=== PATIENT | female | born 1960 | race Caucasian/White ===

== ENCOUNTER 2017-10-01 12:15 | Outpatient (CLI) | payer MEDICARE, BC ==
--- NOTE | 2017-10-01 14:31 | ULT ---
ULTRASOUND RETROPERITONEUM COMPLETE: (RENAL) 10/01/2017 HISTORY: A 57-year-old female with cystitis. COMPARISON: 10/03/2016 FINDINGS: Again noted is the approximately 1 cm round, hyperechoic, parenchymal mass in the upper pole of the r ight kidney that was conclusively demonstrated on the noncontrast CT of 11/12/2014 to be of fat densi ty, representing a benign angiomyolipoma. It has not changed since the ultrasound of 10/03/2016. Th e right kidney measures 6.5 x 5 x 5.5 cm. The left kidney measures 11 x 5.5 x 5.5 cm. There is no hydronephrosis bilaterally. The pre-void urinary bladder has a normal appearance, with an estimated volume of approximately 210 m L. The post void bladder volume is approximately 40 mL. IMPRESSION: 1. No hydronephrosis. 2. Small amount of post void residua. 3. Small, benign angiomyolipoma in the upper pole of the right kidney. ROXY Bermudez POS: INDIGO
== END 2017-10-01 12:16 | disposition home or self-care (01) ==
LOC: ULT 12:15
PROVIDERS: ATTEND Urology
DX: D17.71 Benign lipomatous neoplasm of kidney (principal)
CPT/HCPCS: 76770

== ENCOUNTER 2017-11-04 15:04 | Outpatient (CLI) | payer MEDICARE, BC ==
--- NOTE | 2017-11-04 19:12 | RAD ---
KUB: INDICATIONS: Nephrolithiasis. COMPARISON: 01/04/2015. FINDINGS: There is prominent amount of retained stool overlying the abdomen and pelvis. There is an anastomoti c suture ring seen within the pelvis, likely related to a colorectal anastomosis. Bowel gas pattern is unobstructed. There are tiny, nonobstructing calculi seen in the expected regio n of the left kidney, which are stable. There is a prominent nonobstructing calculus involving the i nferior pole of the right kidney, likely stable, measuring approximately 9 mm. No acute osseous abno rmality is evident. IMPRESSION: 1. Stable nephrolithiasis when compared to prior study dated 01/04/2015. 2. The previously seen right ureteral stent has been removed. 3. Prominent amount of retained stool within the colon and rectum slightly limits image detail. POS: INDIGO
== END 2017-11-04 15:05 | disposition home or self-care (01) ==
LOC: RAD 15:04
PROVIDERS: ATTEND Urology
DX: N20.0 Calculus of kidney (principal); K59.00 Constipation, unspecified
CPT/HCPCS: 74018

== ENCOUNTER 2018-03-10 10:05 | Outpatient (CLI) | payer MEDICARE, BC ==
[~2018-03-10 10:05] MED LIST: Gadobenate Dimeglumine 529 MG/1 ML (20ML VIAL) ONE
--- NOTE | 2018-03-10 13:18 | MRI ---
BRAIN MRI WITH AND WITHOUT CONTRAST: Date: 03/10/18 COMPARISON: None. HISTORY: Polyneuropathy, gait abnormality for weeks. TECHNIQUE: Multiplanar, multisequence MR imaging of the brain is provided with and without contrast. FINDINGS: The imaged paranasal sinuses/mastoid air cells demonstrate mucosal thickening of the anterior ethmoid air cells bilaterally. There is mild mucosal thickening of maxillary sinus on right and there is mod erate polypoid mucosal thickening of the maxillary sinus on the left. Arterial flow-voids at the axia l level of the skull base appear unremarkable on the T2-weighted imaging. The diffusion-weighted imaging demonstrates no evidence for acute infarction. Axial gradient echo imaging demonstrates no evidence for intracranial hemorrhage. No midline shift or mass effect is noted. Regional bone marrow signal intensity appears grossly unremarkable. The postcontrast imaging demonstrates no abnormal enhancement within the brain parenchyma. IMPRESSION: No acute findings. POS: INDIGO
== END 2018-03-10 10:06 | disposition home or self-care (01) ==
LOC: SCSMRI 10:05
PROVIDERS: ATTEND Psychiatry & Neurology Neurology
DX: G62.9 Polyneuropathy, unspecified (principal); R26.9 Unspecified abnormalities of gait and mobility
CPT/HCPCS: 70553; A9579

== ENCOUNTER 2018-03-25 11:10 | Outpatient (CLI) | payer MEDICARE, BC ==
[2018-03-25 12:36] LABS: INR-International Normal Ratio 0.9; PTT 26.2 SEC (22.9-36.1); Prothrombin Time 12.7 SEC (12.0-14.7)
[2018-03-25 12:37] LABS: Hemoglobin 10.6 g/dL (12.0-16.0); Mean Corpuscular HGB CONC 33.1 g/dL (32.0-36.0); Mean Corpuscular Hemoglobin 30.8 pg (27.0-31.0); Mean Platelet Volume 7.1 fL (7.4-10.4); Platelet Count 191 thou/uL (130-400); RBC Distribution Width 12.4 % (11.5-14.5); Red Blood Cell (RBC) Count 3.45 mill/uL (4.20-5.40); White Blood Cell (WBC) Count 7.3 thou/uL (4.8-10.8)
[2018-03-25 12:54] LABS: Bilirubin Negative (Negative); Blood, Urine Negative (Negative); Clarity CLEAR (Clear); Glucose, Urine (Dipstick) Negative (Negative); Leukocyte Negative (Negative); Nitrite Negative (Negative); Protein, Urine (Dipstick) Trace mg/dL (Neg-Trace); Specific Gravity, Urine 1.012 (1.002-1.036); Urobilinogen 0.2 mg/dL (0.2-1.0); pH, Urine 5.5 (5.0-9.0)
[2018-03-25 12:56] LABS: Anion Gap 11 mmol/L (10-20); BUN (Urea Nitrogen) 16 mg/dL (9.8-20.1); Calc. Creatinine Clearance 0 mL/min (70-130); Calcium 9.6 mg/dL (7.8-10.44); Carbon Dioxide 28 mmol/L (22-29); Chloride 100 mmol/L (98-107); Estimated GFR-MDRD 70; Glucose 104 mg/dL (70-105); Potassium 4.1 mmol/L (3.5-5.1); Sodium 135 mmol/L (136-145)
[2018-03-25 12:57] LABS: Bacteria/HPF None Seen HPF (None Seen); Hyaline Casts/LPF 0-3 HYALINE CAST LPF (0-3 Hyaline); RBC/HPF 0-3 HPF (0-3); Squamous Epithelial None Seen HPF (0-3); WBC/HPF 0-3 HPF (0-3)
--- NOTE | 2018-03-26 12:04 | EKG ---
Test Reason : Blood Pressure : / mmHG Vent. Rate : 081 BPM Atrial Rate : 081 BPM P-R Int : 138 ms QRS Dur : 102 ms QT Int : 372 ms P-R-T Axes : 061 107 041 degrees QTc Int : 432 ms Normal sinus rhythm Rightward axis Incomplete right bundle branch block Septal infarct , age undetermined Abnormal ECG When compared with ECG of 09-NOV-2014 18:33, Septal infarct is now Present Nonspecific T wave abnormality now evident in Lateral leads Confirmed by AMOR GIBBS ([id number] on 03/26/2018 12:04:27 PM Referred By: PAT Confirmed By:AMOR GIBBS
== END 2018-03-25 11:11 | disposition home or self-care (01) ==
LOC: LABBT 11:10
PROVIDERS: ATTEND Urology
DX: Z01.818 Encounter for other preprocedural examination (principal); N20.0 Calculus of kidney
CPT/HCPCS: 80048; 81001; 85027; 85610; 85730; 87086; 93005; 93010

== ENCOUNTER 2018-04-08 11:09 | Outpatient (CLI) | payer MEDICARE, BC ==
--- NOTE | 2018-04-08 13:24 | RAD ---
KUB: INDICATIONS: History of nephrolithiasis. COMPARISON: 11/04/2017 FINDINGS: Bilateral nephrolithiasis is stable. Anastomotic suture line within the left hemipelvis is stable. The bowel gas pattern is unobstructed. No acute osseous abnormality is evident. IMPRESSION: Stable bilateral nephrolithiasis. POS: INDIGO
== END 2018-04-08 11:10 | disposition home or self-care (01) ==
LOC: RAD 11:09
PROVIDERS: ATTEND Urology
DX: N20.0 Calculus of kidney (principal)
CPT/HCPCS: 74018

== ENCOUNTER 2018-12-11 16:10 | Outpatient (CLI) | payer MEDICARE, BC ==
--- NOTE | 2018-12-11 16:29 | RAD ---
XR Chest Pa Lat STANDARD HISTORY:Evaluation for pleural effusion. COMPARISON: 12/20/2014 study FINDINGS: Heart size and mediastinum are within normal limits. The lungs are clear of infiltrates. No pleural effusions. No bony findings. IMPRESSION: Unremarkable chest.
== END 2018-12-11 16:11 | disposition home or self-care (01) ==
LOC: BICRAD 16:10
PROVIDERS: ATTEND Internal Medicine Cardiovascular Disease
DX: J90 Pleural effusion, not elsewhere classified (principal)
CPT/HCPCS: 71046

== ENCOUNTER 2019-03-31 10:02 | Outpatient (CLI) | payer MEDICARE, BC ==
--- NOTE | 2019-03-31 11:56 | ULT ---
Exam: Bilateral renal ultrasound HISTORY: Right renal angiomyolipoma COMPARISON: 10/01/2017 FINDINGS: Right kidney: Redemonstration of echogenic focus emanating from the upper pole the right kidney measu ring 1.0 x 1.1 x 0.9 cm (previously measuring 1.0 x 1.2 x 1.0 cm). No hydronephrosis Right kidney measurements: 11.0 x 5.0 x 5.4 cm. Left kidney: Normal cortical echotexture. No hydronephrosis Left kidney measurements 11.2 x 5.7 x 5.5 cm. Urinary bladder: Moderate bladder distention. Postvoid imaging was not performed. Bladder volume is 3 31 mL. IMPRESSION: 1. Stable echogenic focus in the upper pole of the right kidney, compatible with angiomyolipoma. 2. Significant distention of the urinary bladder. Consider post void imaging to exclude urinary reten tion.
== END 2019-03-31 10:03 | disposition home or self-care (01) ==
LOC: SCSULT 10:02
PROVIDERS: ATTEND Urology
DX: D17.71 Benign lipomatous neoplasm of kidney (principal); N32.89 Other specified disorders of bladder; N28.89 Other specified disorders of kidney and ureter
CPT/HCPCS: 76770

== ENCOUNTER 2019-10-26 12:50 | Outpatient (CLI) | payer MEDICARE, BC ==
--- NOTE | 2019-10-27 08:51 | NM ---
CARDIAC AMYLOIDOSIS PYP HISTORY: Concern for cardiac amyloidosis RADIOPHARMACEUTICAL: 15.6 mCi technetium 99m PYP injected intravenously FINDINGS: No radiotracer uptake is seen in the heart. There is physiologic activity in the skeleton. IMPRESSION: No scintigraphic evidence of ATTR cardiac amyloidosis.
== END 2019-10-26 12:51 | disposition home or self-care (01) ==
LOC: NM 12:50
PROVIDERS: ATTEND Internal Medicine Cardiovascular Disease
DX: E85.4 Organ-limited amyloidosis (principal)
CPT/HCPCS: 78803; A9538

== ENCOUNTER 2020-10-05 08:08 | Outpatient (CLI) | payer MEDICARE, BC | END 2020-10-05 08:09 | disposition home or self-care (01) | PROVIDERS: ATTEND Family Medicine | DX: R26.9 Unspecified abnormalities of gait and mobility (principal) ==

== ENCOUNTER 2023-04-25 10:31 | Outpatient (CLI) | payer MEDICARE, BC | END 2023-04-25 10:32 | disposition home or self-care (01) | LOC: ULT 10:31 | PROVIDERS: ATTEND Urology | DX: D17.71 Benign lipomatous neoplasm of kidney (principal); N28.1 Cyst of kidney, acquired; R93.421 Abnormal radiologic findings on diagnostic imaging of right kidney | CPT/HCPCS: 76770 ==

== ENCOUNTER 2023-08-02 09:28 | Day surgery (SDC) | payer MEDICARE, BC ==
[2023-08-01 11:15] VITALS: BMI 22.3
[2023-08-02] MEDS ORDERED: Lidocaine 2% PF 100 mg/5 ml Syringe ONE (10:27)
[2023-08-02] MEDS ORDERED: EPINEPHrine 1 MG/ML VIAL ONE (10:28)
[2023-08-02] MEDS ORDERED: Bupivacaine 0.25% HCL 30 ML VIAL ONE (10:28)
[2023-08-02] MEDS ORDERED: Lidocaine 2% PF 5 ML VIAL ONE ×2 (10:29→11:02)
[2023-08-02] MEDS ORDERED: PHENYLEPHRINE-NS 100 MCG/ML 10 ML SYRINGE ONE (11:02)
[2023-08-02] MEDS ORDERED: Fentanyl 250 MCG/5 ML VIAL ONE (11:02)
[2023-08-02] MEDS ORDERED: PROPOFOL 20 ML ONE (11:02)
[2023-08-02] MEDS ORDERED: LevoFLOXacin D5W 500 mg (100 mL) BAG ONE (11:07)
[2023-08-02] MEDS ORDERED: Dexamethasone 4 mg/ml Vial ONE (11:26)
[2023-08-02] MEDS ORDERED: Ondansetron PF 4 MG/2 ML Vial ONE (11:26)
[2023-08-02] MEDS ORDERED: ePHEDrine Sulfate 50 MG/10 ML VIAL ONE (11:29)
== END 2023-08-02 14:30 | disposition home or self-care (01) ==
LOC: SDC 09:28
PROVIDERS: ATTEND Surgery
PROC: 05HM33Z Insertion of Infusion Device into Right Internal Jugular Vein, Percutaneous Approach (ICD-10-PCS; principal; 2023-08-02)
DX: M32.9 Systemic lupus erythematosus, unspecified (principal); F32.A Depression, unspecified; K58.9 Irritable bowel syndrome, unspecified; N18.9 Chronic kidney disease, unspecified; F41.9 Anxiety disorder, unspecified; K21.9 Gastro-esophageal reflux disease without esophagitis; M19.90 Unspecified osteoarthritis, unspecified site; F15.90 Other stimulant use, unspecified, uncomplicated; E03.9 Hypothyroidism, unspecified; Z90.89 Acquired absence of other organs; Z90.710 Acquired absence of both cervix and uterus; Z96.651 Presence of right artificial knee joint; Z95.810 Presence of automatic (implantable) cardiac defibrillator; Z88.0 Allergy status to penicillin; Z88.2 Allergy status to sulfonamides; Z79.890 Hormone replacement therapy; Z79.899 Other long term (current) drug therapy
CPT/HCPCS: 36558; 82962; C1788; J0171; 36416; 71045; J1100; J1642; J1956; J2001; J2405; J2704; J3010; S0020